=== PATIENT | male | born 1980 | race Two or more races ===

== ENCOUNTER 2018-05-01 15:17 | Emergency (ER) | payer MEDICAID ==
[~2018-05-01] VITALS: Ht 190.5 cm; Wt 125.2 kg
[2018-05-01 15:55] VITALS: BP 155/98
[2018-05-01] MEDS ORDERED: Ketorolac 60mg Inj IM ONE (16:00)
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
[2018-05-01] MEDS ORDERED: IBUPROFEN600 MG ORAL (16:21)
[2018-05-01] MEDS ORDERED: ROBAXIN500 MG PO (16:21)
[2018-05-01] MEDS ORDERED: LIDODERM700 M1 TOPIC (16:21)
[2018-05-01 16:34] VITALS: BP 155/98
== END 2018-05-01 17:02 | disposition home or self-care (01) ==
LOC: EMR 16:29
DX: S39.012A Strain of muscle, fascia and tendon of lower back, initial encounter (principal); S30.1XXA Contusion of abdominal wall, initial encounter; V43.52XA Car driver injured in collision with other type car in traffic accident, initial encounter; Y92.411 Interstate highway as the place of occurrence of the external cause
CPT/HCPCS: 96372; 99283